=== PATIENT | female | born 1930 | race Caucasian/White ===

== ENCOUNTER 2017-03-26 07:15 | Emergency (ER) | payer MEDICARE ==
[~2017-03-26 07:15] MED LIST: ACET325 PO; ASPI81CH PO; Acetaminophen325 M1 PO; Aspir-Low81 MG PO; BLOOD PRESSURE1 EAC2 MC; Bactrim Ds Tab1 EACH PO; CEFU500 PO; CEPH500 PO; CIPR250 PO; CITA20; CODACE30 PO; DOCU100 PO; DONE5; DONE5 PO; FAMC500 PO; HALO1 PO; HALO2 PO; HYDACE5 PO; HYDR1TAB94 PO; LEVSOD125; LEVSOD50 PO; LISI20; LISI20 PO; LISI5 PO; MEMA10; METO25 PO; METO25ER; METO25ER PO; Nitrofurantoin50 MG PO; PARO10 PO; QUET25 PO; RISP.5 PO; SENN187 PO; Therapeutic M1 EAC5 PO; Therems-M1 EACH PO; Zofran4 MG PO; [UNRECOGNIZED DRUG - CODE] PO
[2017-12-20] MEDS ORDERED: SENIOR TABS1 EACH PO (12:01)
== END 2017-03-26 07:24 | disposition left against medical advice (07) ==
LOC: ER 07:15
DX: Z53.21 Procedure and treatment not carried out due to patient leaving prior to being seen by health care provider (principal)

== ENCOUNTER 2017-05-22 12:45 | Emergency (ER) | payer MEDICARE ==
[~2017-05-22] VITALS: Ht 157.5 cm; Wt 47.6 kg
[2017-05-22] MEDS ORDERED: TRAM50 PO (13:22)
[2017-05-22 13:40] LABS: BASOPHILS ABSOLUTE AUTO 0.02 K/mm3 (0.00-0.23); BASOPHILS PERCENT AUTO 0 % (0-2); EOSINOPHILS ABSOLUTE AUTO 0.02 K/mm3 (0.00-0.68); EOSINOPHILS PERCENT AUTO 0 % (0-6); Hematocrit 35.5 % (33.0-51.0); Hemoglobin 11.7 g/dL (11.5-16.0); IMMATURE GRAN ABSOLUTE AUTO 0.02 K/mm3 (0.00-0.10); IMMATURE GRAN PERCENT AUTO 0 % (0-1); LYMPHOCYTES ABSOLUTE AUTO 1.28 K/mm3 (0.84-5.20); LYMPHOCYTES PERCENT AUTO 16 % (21-46); MONOCYTES ABSOLUTE AUTO 0.78 K/mm3 (0.16-1.47); MONOCYTES PERCENT AUTO 10 % (4-13); Mean Corpuscular HGB 30.1 pg (26.0-34.0); Mean Corpuscular Volume 91 fL (80-100); Mean Platelet Volume 9.2 fL (9.1-12.4); NEUTROPHILS ABSOLUTE AUTO 6.04 K/mm3 (1.96-9.15); NEUTROPHILS PERCENT AUTO 74 % (41-73); Platelet Count 110 K/mm3 (150-400); RDW Coefficient Variation 13.5 % (11.7-14.2); RDW Standard Deviation 44.1 fL (35.1-46.3); Red Blood Cell Count 3.89 M/mm3 (3.80-5.20); White Blood Cell Count 8.16 K/mm3 (4.00-11.30)
[2017-05-22 14:03] LABS: Alanine Aminotransfer (ALT/SGP 12 U/L (12-78); Albumin, Blood 3.6 g/dL (3.4-5.0); Albumin/Globulin Ratio 0.9 (0.8-1.8); Alk Phos 94 U/L (50-136); Anion Gap 7 mmol/L (6-16); Aspartate Aminotrans (AST/SGOT 16 U/L (12-37); Bilirubin, Total 0.8 mg/dL (0.1-1.0); Blood Urea Nitrogen 24 mg/dL (8-24); Bun/Creatinine Ratio 33.4 (12.0-20.0); CO2, Blood 27 mmol/L (21-32); Calcium, Blood 8.8 mg/dL (8.5-10.1); Chloride, Blood 108 mmol/L (98-108); Creatinine, Blood 0.72 mg/dL (0.40-1.00); Globulin, Blood 4.1 g/dL (2.2-4.0); Glomerular Filtration Rate >60 (60-); Glucose, Blood 108 mg/dL (70-99); Potassium, Blood 3.7 mmol/L (3.5-5.5); Sodium, Blood 142 mmol/L (136-145); Total Protein, Blood 7.7 g/dL (6.4-8.2)
[2017-05-22 14:56] LABS: Source, Urine Catheter
[2017-05-22 15:07] LABS: Appearance, Urine Clear (Clear); Bilirubin, Urine Neg (Neg); Blood, Urine 5+ (Neg); Color, Urine Yellow (P-Yellow); Glucose Qualitative, Urine Neg (Neg); Ketones, Urine 1+ (Neg); Leukocyte Esterase, Urine Neg (Neg); Nitrite, Urine Neg (Neg); Protein, Urine 2+ (Neg); Specific Gravity, Urine 1.015 (1.003-1.022); Urobilinogen, Urine NORM (Normal); pH, Urine 6.5 (5.0-8.0)
[2017-05-22 15:27] LABS: Bacteria Few /hpf; Red Blood Cells, Urine 25-50 /hpf (0-2); Squamous Epithelial Cells Few /hpf (Few)
[2017-05-22] MEDS ORDERED: Colace250 MG PO (15:41)
[2017-05-22] MEDS ORDERED: Norco 5-325 Ta1 EACH PO (15:41)
[2017-12-20] MEDS ORDERED: SENIOR TABS1 EACH PO (12:01)
== END 2017-05-22 15:55 | disposition home or self-care (01) ==
LOC: ER 12:45
PROVIDERS: Internal Medicine
DX: S70.02XA Contusion of left hip, initial encounter (principal); S80.02XA Contusion of left knee, initial encounter; F03.90 Unspecified dementia, unspecified severity, without behavioral disturbance, psychotic disturbance, mood disturbance, and anxiety; E03.9 Hypothyroidism, unspecified; I10 Essential (primary) hypertension; F32.9 Major depressive disorder, single episode, unspecified; Z79.899 Other long term (current) drug therapy; Z79.82 Long term (current) use of aspirin; Z87.891 Personal history of nicotine dependence; W07.XXXA Fall from chair, initial encounter
CPT/HCPCS: 36415; 73502; 73564; 80053; 81001; 85025; 96361; 96374; 96375; 99284; J2405; J3010; J7030; P9612

== ENCOUNTER 2017-09-25 12:08 | Emergency (ER) | payer MEDICARE ==
[~2017-09-25] VITALS: Ht 157.5 cm; Wt 47.6 kg
[~2017-09-25 12:08] MED LIST changes: +Colace250 MG PO; +Norco 5-325 Ta1 EACH PO; +TRAM50 PO
[2017-09-25] MEDS ORDERED: Norco 5-325 Ta1 EACH PO (13:00)
== END 2017-09-25 13:04 | disposition home or self-care (01) ==
LOC: ER 12:08
DX: S60.222A Contusion of left hand, initial encounter (principal); S00.83XA Contusion of other part of head, initial encounter; F03.90 Unspecified dementia, unspecified severity, without behavioral disturbance, psychotic disturbance, mood disturbance, and anxiety; E03.9 Hypothyroidism, unspecified; I10 Essential (primary) hypertension; F32.9 Major depressive disorder, single episode, unspecified; Z79.899 Other long term (current) drug therapy; Z79.82 Long term (current) use of aspirin; Z87.891 Personal history of nicotine dependence; W18.30XA Fall on same level, unspecified, initial encounter
CPT/HCPCS: 73130; 99284-25